=== PATIENT | female | born 1950 | race Caucasian/White ===

== ENCOUNTER 2018-09-05 12:50 | Emergency (ER) | payer MEDICARE, BC ==
[~2018-09-05] VITALS: Ht 162.6 cm; Wt 92.1 kg
[2018-09-05] MEDS ORDERED: [UNRECOGNIZED DRUG - OTHER] (12:59)
[2018-09-05] MEDS ORDERED: CYMBALTA20 MG PO (12:59)
[2018-09-05 13:59] LABS: CLARITY,URINE CLOUDY (CLEAR); COLOR,URINE ORANGE (YELLOW)
[2018-09-05 14:00] LABS: BILIRUBIN,URINE 1+ (NEGATIVE); KETONES,URINE NEGATIVE (NEGATIVE); LEUKOCYTE ESTERASE ,URINE TRACE (NEGATIVE); NITRITE,URINE POSITIVE (NEGATIVE); PROTEIN,URINE DIPSTICK 2+ (NEGATIVE); URINE UROBILINOGEN 1 mg/dL (0.2 - 1)
[2018-09-05 14:01] LABS: AMORPHOUS SEDIMENT,URINE FEW (FEW); BACTERIA,URINE MANY /HPF; EPITHELIAL CELLS,URINE MODERATE /LPF; RBC,URINE 21-50 /HPF (0-5)
[2018-09-05] MEDS ORDERED: LIDOCAINE HCL 2% 100 MG/5 ML IV ONE ×2 (14:45)
[2018-09-05] MEDS ORDERED: CEFTRIAXONE SOD 1 GM VIAL IM ONE (15:00)
== END 2018-09-05 15:15 | disposition home or self-care (01) ==
LOC: ER 12:50
DX: R30.0 Dysuria (principal); N30.91 Cystitis, unspecified with hematuria; F41.9 Anxiety disorder, unspecified; F32.9 Major depressive disorder, single episode, unspecified
CPT/HCPCS: 81001; 87086; 87186; 99283; J0696; J2001